=== PATIENT | female | born 1950 | race Hispanic/Latino ===

== ENCOUNTER → 2021-07-05 | Outpatient (CLI) | payer OTHER | END | disposition home or self-care (01) | LOC: RAH 09:44 | PROVIDERS: ATTEND Internal Medicine | DX: I51.7 Cardiomegaly (principal); R55 Syncope and collapse; J84.10 Pulmonary fibrosis, unspecified | CPT/HCPCS: 93306; 93356 ==

== ENCOUNTER → 2025-07-06 | Outpatient (CLI) | payer OTHER, MEDICARE ==
--- NOTE | 2025-07-06 14:03 | HMCIMG ---
EXAM: US Bladder. CLINICAL HISTORY: Urinary tract infection (UTI). TECHNIQUE: Real-time bladder ultrasound (complete) with image documentation. Sonographic evaluation of the urinary bladder, including pre- and post-void measurements. COMPARISON: None provided. FINDINGS: BLADDER: Bladder wall thickness: 0.17 cm, within normal limits. No intraluminal masses or debris. Patient hydrated for 20 minutes but bladder did not fill adequately. Pre-void volume: 14.01 cm???. Post-void residual volume: 1.91 cm???, within normal limits. IMPRESSION: 1. Inadequate bladder distention despite hydration. 2. Small post-void residual volume (1.91 cm???). /[place]
== END | disposition home or self-care (01) ==
LOC: RAH 10:33
PROVIDERS: ATTEND Internal Medicine
DX: N39.0 Urinary tract infection, site not specified (principal); N32.89 Other specified disorders of bladder
CPT/HCPCS: 76775

== ENCOUNTER → 2025-07-20 | Outpatient (CLI) | payer OTHER, MEDICARE ==
--- NOTE | 2025-07-20 12:50 | HMCIMG ---
EXAM: US Abdomen complete CLINICAL HISTORY: Cyst of kidney. Prior ultrasound 02/01/2025. TECHNIQUE: Real-time ultrasound of the abdomen (complete) with image documentation. COMPARISON: Prior ultrasound on 02/01/2025. FINDINGS: LIVER: Measures 13.3 cm. Normal echotexture. No focal lesions identified. GALLBLADDER: Normal wall thickness. No gallstones. Wall thickness 2 mm. COMMON BILE DUCT: Measures 3 mm. Normal caliber. PANCREAS: Visualized portions unremarkable. KIDNEYS: Right Kidney: Measures 11.0 x 4.1 x 4.2 cm. Normal cortical thickness and echogenicity. No hydronephrosis or stones. Left Kidney: Measures 9.0 x 3.4 x 3.1 cm. A cyst is present in the lower pole measuring 14 x 11 x 14 mm (previously 22 x 22 x 18 mm). No hydronephrosis or stones. SPLEEN: Measures 7.8 cm. Normal echotexture. AORTA: Unremarkable. IMPRESSION: 1. Left renal lower pole cyst, decreased in size compared to prior exam (14 ??? 11 ??? 14 mm, previously 22 ??? 22 ??? 18 mm). 2. Otherwise unremarkable abdominal ultrasound. /[place]
== END | disposition home or self-care (01) ==
LOC: RAH 08:29
PROVIDERS: ATTEND Internal Medicine
DX: N28.1 Cyst of kidney, acquired (principal); N20.0 Calculus of kidney
CPT/HCPCS: 76700

== ENCOUNTER → 2025-08-11 | Outpatient (CLI) | payer OTHER, MEDICARE ==
--- NOTE | 2025-08-12 10:45 | HMCIMG ---
INDICATION: Benign essential microscopic hematuria.. COMPARISON: None. TECHNIQUE: CT images were created without intravenous contrast. Numerous low-radiation dose strategies were employed including AEC (Automatic Exposure Control), individualized BMI-based low dose scan protocols and the exam was performed on a CT scanner that is compliant with the NEMA XR-29 Smart Dose Standard. DICOM Radiation Dose Structured Reporting capability and Dose Check Standard are also features of this scanner. RADIATION DOSE ESTIMATE: CTDIvol (mGy): 5.20 \ DLP (mGy-cm): 244.30 FINDINGS: LOWER THORAX:Lung bases are clear. Normal cardiac size without pericardial effusion. LIVER: No focal hepatic abnormality. BILIARY: No calcified gallstones. No intra or extrahepatic biliary ductal dilatation. PANCREAS: Normal. No lesion, fluid collection, ductal dilatation, or acute inflammation. SPLEEN: Normal. No enlargement or focal lesion. STOMACH/DUODENUM: Unremarkable. ADRENALS: Normal. No mass or enlargement. KIDNEYS: The left kidney in the lower pole is a nonobstructing calculus. The calculus measures 0.54 cm. There is also associated cortical cyst.. No mass, obstruction, or any other nephrolithiasis. There is no evidence of any obstructive uropathy. BOWEL/MESENTERY: Normal. No visible mass, obstruction, or bowel wall thickening. AORTA/VASCULAR: No aneurysm. No atherosclerotic disease. PERITONEUM/RETROPERITONEUM: Normal. No mass, ascites or free air. LYMPH NODES: No pathologically enlarged lymph nodes. URINARY BLADDER: Normal. No visible focal wall thickening, lesion, or calculus. PELVIC ORGANS: The uterus is midline with large calcification suggesting a fibroid calcification. BONES: No acute osseous abnormality. There is multilevel disc disease involving the lower thoracic spine with narrowing of the disc height and vacuum phenomena. ABDOMINAL WALL/SOFT TISSUES: Normal. No mass or hernia. IMPRESSION: No acute process in the CT of abdomen and pelvis without intravenous contrast There is a 0.54 cm calculus in the lower pole of the left kidney. The uterus has a large calcification in the center suggesting of uterine fibroid calcification. I would recommend correlation with pelvic sonogram.
== END | disposition home or self-care (01) ==
LOC: RAH 11:14
PROVIDERS: ATTEND Internal Medicine
DX: N20.0 Calculus of kidney (principal); N28.1 Cyst of kidney, acquired; R31.1 Benign essential microscopic hematuria; M51.34 Other intervertebral disc degeneration, thoracic region; M48.04 Spinal stenosis, thoracic region
CPT/HCPCS: 74176